=== PATIENT | male | born 1985 | race Caucasian/White ===

== ENCOUNTER 2025-03-18 18:31 | Emergency (ER) | payer BC, SELFPAY ==
[2025-03-18 18:35] VITALS: BP 124/81
[2025-03-18 19:35] VITALS: BMI 22.5
[2025-03-18] MEDS: TYLENOL 1000 MG PO (21:24)
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
[2025-03-18 22:13] VITALS: BP 108/71
== END 2025-03-18 22:22 | disposition home or self-care (01) ==
LOC: EMR 18:31
PROVIDERS: EMERGENCY PHYSICIAN Emergency Medicine; FAMILY PHYSICIAN Family Medicine
DX: S92.422A Displaced fracture of distal phalanx of left great toe, initial encounter for closed fracture (principal); X58.XXXA Exposure to other specified factors, initial encounter
CPT/HCPCS: 99283; 73660

== ENCOUNTER 2025-03-24 21:17 | Emergency (ER) | payer BC, SELFPAY ==
[2025-03-24 21:22] VITALS: BP 133/85
[2025-03-24 21:30] VITALS: BP 131/80
[2025-03-24] MEDS: TORADOL 15 MG IV ×2 (21:34→22:18)
[2025-03-24 21:40] VITALS: BMI 25.2
[2025-03-24 22:10] VITALS: BP 112/86
[2025-03-24] MEDS: TYLENOL 650 MG PO (22:18)
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
[2025-03-24 23:00] VITALS: BP 117/69
[2025-03-25] VITALS: BP 127/84
[2025-03-25 00:42] VITALS: BP 130/83
[2025-03-25] MEDS: PERCOCET 5/325 1 TABLET PO (00:53)
== END 2025-03-25 01:10 | disposition home or self-care (01) ==
LOC: EMR 21:17
PROVIDERS: EMERGENCY PHYSICIAN Emergency Medicine; FAMILY PHYSICIAN Family Medicine
DX: S83.91XA Sprain of unspecified site of right knee, initial encounter (principal); V18.0XXA Pedal cycle driver injured in noncollision transport accident in nontraffic accident, initial encounter
CPT/HCPCS: 29505; 99283; 96374; 96376; 73560; 73590

== ENCOUNTER → 2025-03-28 08:32 | Outpatient (REF) | payer BC, SELFPAY | LOC: HWRAD 08:32 | PROVIDERS: ATTENDING PHYSICIAN Orthopaedic Surgery; FAMILY PHYSICIAN Nurse Practitioner Adult Health | DX: S82.141A Displaced bicondylar fracture of right tibia, initial encounter for closed fracture (principal) | CPT/HCPCS: 73700 ==

== ENCOUNTER 2025-04-11 12:19 | Day surgery (SDC) | payer BC, SELFPAY ==
[2025-04-11] VITALS (14 sets, daily range): BP systolic 92–134; BP diastolic 67–85; BMI 25.1
[2025-04-11] MEDS: CELEBREX 200 MG PO (13:10)
[2025-04-11] MEDS: TYLENOL 1000 MG PO (13:11)
--- NOTE | 2025-04-11 16:12 | OR.RPT ---
Operative Report
Operative Report
Date
May 12, 2025
Anesthesia Type:
General
Operative Indications:
Split depressed right lateral tibial plateau fracture
Operative Findings :
Same
Complications:
None
Implants:
[place] axial proximal lateral tibial plate
Procedure and Technique:
Open reduction internal fixation right lateral tibial plateau fracture
INDICATIONS FOR PROCEDURE:
Patient is an active 39-year-old male who sustained a mechanical fall injury to his right knee. He subsequently diagnosed with a somewhat comminuted split depressed lateral tibial plateau fracture right knee. I had a long discussion with the
patient regarding diagnosis and treatment options. We discussed both surgical and nonsurgical options. Ultimately my recommendation was to proceed with surgical intervention. We discussed risks benefits and alternatives of surgery. We discussed
the usual and expected perioperative postoperative course. No guarantees were given. After discussion written informed consent was obtained
OPERATIVE PROCEDURE:
Patient was seen and identified in the preoperative holding area. Operative extremity was marked. All questions were addressed and answered. He was taken to the operating room where general anesthesia was administered. Nonsterile tourniquet was
applied. X-rays of the contralateral knee were taken for comparison intraoperatively. Operative extremities then prepped and draped in the normal sterile fashion. Timeout was performed again identifying the correct operative extremity.
Preoperative antibiotics were addressed. Tourniquet inflated anterolateral approach to the lateral proximal tibia was taken. Sharp dissection was carried through skin subcutaneous tissues. Hemostasis was achieved electrocautery. The anterior
compartment musculature was elevated off the proximal tibia. Subperiosteal dissection was performed off of Sue's tubercle. Submeniscal arthrotomy was performed. There was somewhat of a discoid type meniscus identified. No obvious tears.
There was visualized depressed fracture. Under fluoroscopic guidance, the articular surface was elevated. There was also noted to be significant widening of the tibial plateau. Cancellous allograft bone chips were then placed. Plate was then
placed and confirmed to be in appropriate position on orthogonal imaging. Fracture widening was improved with large bone clamp placed under fluoroscopic guidance nonlocking bicortical screw was placed distally. Multiple locking screws were placed
in a rafting technique proximally. Additional none locking bicortical screws were placed distally and a kickstand screw was then placed under fluoroscopic guidance. Orthogonal imaging confirmed improvement of fracture position. Satisfied with
extent surgery wound was copiously irrigated normal saline solution. Tourniquet was deflated. Hemostasis was confirmed with electrocautery. Meniscus was repaired to the plate with 0 PDS suture. Wound was closed in layered fashion utilizing 0
Vicryl for deep fascial layer, 2-0 Vicryl for subcutaneous layer katey for skin. Sterile dressing was applied consisting of Aquacel dressing and Manjit bandage. Xeroform 4 x 4 gauze was placed over the small wounds from the bone clamp. Anesthesia
was averse and patient was taken the PACU in stable condition. Postoperative plan to include nonweightbearing to the upper extremity and knee immobilizer. Patient will instructed to begin range of motion exercises. Plan to see patient back 2
weeks postop for repeat clinical assessment initiation of formal physical therapy transition to hinged knee brace. Recommend aspirin 81 mg twice daily for DVT prophylaxis.
Disposition:
PACU stable condition
[2025-04-11] MEDS: DILAUDID 0.5 MG IV ×3 (16:38→17:40)
[2025-04-11] MEDS: ZOFRAN 4 MG IV (17:06)
[2025-04-11] MEDS: COMPAZINE 5 MG IV (18:28)
== END 2025-04-11 19:40 | disposition home or self-care (01) ==
LOC: SDS 12:19
PROVIDERS: ATTENDING PHYSICIAN Orthopaedic Surgery
DX: S82.141A Displaced bicondylar fracture of right tibia, initial encounter for closed fracture (principal); W19.XXXA Unspecified fall, initial encounter
CPT/HCPCS: 27535; 73560; 76000; C1713